=== PATIENT | female | born 1960 | race Caucasian/White ===

== ENCOUNTER 2018-04-11 15:19 | Outpatient (REF) | payer MEDICARE, SELFPAY ==
[2018-04-11 21:06] LABS: Hemoglobin A1C 5.7 % (4.5-6.2)
[2018-04-11 21:15] LABS: Cholesterol 162 mg/dL (50-200); HDL Cholesterol 67 mg/dL (40-60); LDL CHOLESTEROL 82 mg/dL (<100); TSH 2.93 uIU/mL (0.358-3.74); Triglyceride 74 mg/dL (30-150)
== END 2018-04-11 15:39 ==
LOC: NCHCN 15:19
PROVIDERS: PCP Physician Assistant; Visit Provider Nurse Practitioner Family
DX: R73.03 Prediabetes (principal); E78.89 Other lipoprotein metabolism disorders
CPT/HCPCS: 80061; 83721; 83036; 84443

== ENCOUNTER 2018-11-22 11:06 | Outpatient (REF) | payer MEDICARE, SELFPAY ==
[2018-11-22 19:07] LABS: Bilirubin Negative (Negative); Blood Negative (Negative); Clarity Clear; Glucose Negative (Negative); Ketones Negative (Negative); Leukocyte Esterase Negative (Negative); Nitrite Negative (Negative); Specific Gravity 1.025 (1.005-1.025); Urobilinogen 0.2 EU/dL (Up TO 0.2); pH 5.5 (5-8)
== END 2018-11-22 11:26 ==
LOC: LBN 11:06
PROVIDERS: Urology; PCP Physician Assistant; Visit Provider Nurse Practitioner Family
DX: R39.15 Urgency of urination (principal)
CPT/HCPCS: 81003

== ENCOUNTER 2019-02-14 14:26 | Outpatient (REF) | payer MEDICARE, SELFPAY ==
--- NOTE | 2019-02-14 13:30 | PAPFT_PTH ---
PATIENT: Iesha Jordan LOC: [facility] U#:[id number] AGE/SX: 58/F ROOM: RE02/14/[address]: Allyn Cabrera : 1960 BED: DIS: 02/14/2019 SPEC #: [id number] RECD: 02/15/19 12:49 STATUS: TROY REQ #: [id number] DUY: 02/14/19 13:[address]: Allyn Cabrera DEPT: [facility] Cytology RECD BY: Becca Gaitan ENTERED: 02/15/19 12:50 SP TYPE: PAPFT OTHR DR: Uriel Moctezuma Tissues: 1 - CX/ENDOCX FOR PAP SMEARS Procedures: PAP THIN PREP/[facility] Screening HPV DNA PROBE Comments: [id number]
== END 2019-02-14 14:46 ==
LOC: NCHCN 14:26
PROVIDERS: PCP Physician Assistant; Visit Provider Nurse Practitioner Family
DX: Z12.4 Encounter for screening for malignant neoplasm of cervix (principal); Z11.51 Encounter for screening for human papillomavirus (HPV); Z01.419 Encounter for gynecological examination (general) (routine) without abnormal findings
CPT/HCPCS: 88142; 87624

== ENCOUNTER 2020-12-16 20:13 | Outpatient (REF) | payer MEDICARE, SELFPAY ==
[2020-12-16 20:29] LABS: Anion Gap 7.7 mmol/L (3-11); BUN 20 mg/dL (7-18); CO2 29.3 mmol/L (21.0-32.0); CREATININE 1.1 mg/dL (0.55-1.02); Calcium 9.5 mg/dL (8.5-10.1); Chloride 107 mmol/L (98-107); Estimated GFR 51.02 (mL/min/1.73m2); Glucose 96 mg/dL (74-106); LDL CHOLESTEROL 72 mg/dL (<100); Sodium 144 mmol/L (136-145)
== END 2020-12-16 20:14 | disposition home or self-care (01) ==
LOC: NCHCN 20:13
PROVIDERS: PCP Physician Assistant; Visit Provider Physician Assistant
DX: R73.03 Prediabetes (principal); Z68.39 Body mass index [BMI] 39.0-39.9, adult; R79.89 Other specified abnormal findings of blood chemistry
CPT/HCPCS: 80048; 83721

== ENCOUNTER 2021-10-14 18:48 | Outpatient (REF) | payer MEDICARE, SELFPAY ==
--- OUTSIDE RECORDS SUMMARY | 2021-10-14 18:50 | XMS_ITS ---
:1960 Author Care Team Providers Name Role Phone SUPRIYA TRINIDAD Primary Care Provider [phone] Allergies Code Code System Name Reaction Severity Status Onset NKDA ? Medications None recorded. Problems None recorded. Procedures None recorded. Results Lab Results None recorded. Past Encounters None recorded. Social History None recorded. Vaccine List None recorded. Plan of Care Reminders Provider Appointments None ? ? recorded. Lab None ? ? recorded. Referral None ? ? recorded. Procedures None ? ? recorded. Surgeries None ? ? recorded. Imaging None ? ? recorded. Vitals None recorded.
[2021-10-14 19:47] LABS: Abs Immature Grans 0.02 10^3/uL (0.0-0.06); Absolute Basophil Count 0.04 10^3/uL (0.0-0.2); Absolute Lymphocyte Count 1.69 10^3/uL (1.2-3.4); Absolute Monocyte Count 0.35 10^3/uL (0.1-0.8); Absolute Neutrophil Count 3.12 10^3/uL (1.2-6.7); Basophils % 0.7; Eosinophils % 3.7; HCT 40.9 % (36.0-46.0); HGB 13.2 g/dL (11.2-15.7); Immature Grans % 0.4; Lymphocytes % 31.2; MCH 29.3 pg (27.0-33.0); MCHC 32.3 % (32.0-36.0); MCV 90.7 fL (80-95); MPV 9.7 fL (8.0-11.0); Monocytes % 6.5; Neutrophils % 57.5; Nucleated RBC 0 %; Platelet Count 281 10^3/uL (130-400); RBC 4.51 10^6/uL (3.93-5.22); RDW 13.6 % (11.7-14.6); RDW-SD 45.5 fL; WBC 5.42 10^3/uL (4.4-10.8)
== END 2021-10-14 18:49 | disposition home or self-care (01) ==
LOC: NCHCN 18:48
PROVIDERS: PCP Physician Assistant; Visit Provider Physician Assistant
DX: I26.99 Other pulmonary embolism without acute cor pulmonale (principal)
CPT/HCPCS: 85025

== ENCOUNTER 2022-09-22 15:03 | Outpatient (REF) | payer MEDICARE, SELFPAY ==
[2022-09-22 19:31] LABS: ALT 413 U/L (14-59); AST 186 U/L (15-37); Albumin 3.4 g/dL (3.4-5.0); Alkaline Phosphatase 132 U/L (46-116); Anion Gap 2.1 mmol/L (3-11); BUN 23 mg/dL (7-18); Bilirubin, Total 0.6 mg/dL (0.2-1.0); CO2 28.9 mmol/L (21.0-32.0); CREATININE 0.9 mg/dL (0.55-1.02); Calcium 8.9 mg/dL (8.5-10.1); Chloride 106 mmol/L (98-107); Estimated GFR 73.19 (mL/min/1.73m2); Glucose 109 mg/dL (74-106); Potassium 4.3 mmol/L (3.5-5.1); Sodium 137 mmol/L (136-145); Total Protein 7.4 g/dL (6.4-8.2)
[2022-09-22 19:32] LABS: Hemoglobin A1C 5.4 % (<5.7)
== END 2022-09-22 15:04 | disposition home or self-care (01) ==
LOC: NCHCN 15:03
PROVIDERS: PCP Physician Assistant; Visit Provider Physician Assistant
DX: R73.03 Prediabetes (principal); E66.01 Morbid (severe) obesity due to excess calories
CPT/HCPCS: 80053; 83036

== ENCOUNTER 2022-09-28 14:52 | Outpatient (REF) | payer MEDICARE, SELFPAY ==
[2022-09-29 03:17] LABS: Ferritin 1093 ng/mL (8-252)
[2022-09-29 03:23] LABS: GGT 172 U/L (5-55)
[2022-09-29 05:43] LABS: Iron 144 ug/dL (50-170); Total Iron Binding Capacity 316 ug/dL (250-450)
[2022-09-30 10:34] LABS: Hepatitis A Antibody IgM Negative (Negative); Hepatitis B Core Antibody Negative (Negative); Hepatitis B surface Ag Negative (Negative); Hepatitis C Ab w Rflx HCV PCR Negative (Negative)
[2022-10-03 16:56] LABS: Alpha-1-Antitrypsin 169 mg/dL (100 - 190)
== END 2022-09-28 14:53 | disposition home or self-care (01) ==
LOC: NCHCN 14:52
PROVIDERS: PCP Physician Assistant; Visit Provider Physician Assistant
DX: R74.8 Abnormal levels of other serum enzymes (principal)
CPT/HCPCS: 86704; 86709; 86803; 87340; 82103; 82104; 82728; 82977; 83540; 83550

== ENCOUNTER 2022-10-05 16:50 | Outpatient (REF) | payer MEDICARE, SELFPAY ==
[2022-10-05 19:44] LABS: Abs Immature Grans 0.01 10^3/uL (0.0-0.06); Absolute Basophil Count 0.06 10^3/uL (0.0-0.2); Absolute Eosinophil Count 0.13 10^3/uL (0.0-0.7); Absolute Lymphocyte Count 1.36 10^3/uL (1.2-3.4); Absolute Monocyte Count 0.34 10^3/uL (0.1-0.8); Absolute Neutrophil Count 2.14 10^3/uL (1.2-6.7); Basophils % 1.5; Eosinophils % 3.2; HCT 42.3 % (36.0-46.0); HGB 13.9 g/dL (11.2-15.7); Immature Grans % 0.2; Lymphocytes % 33.7; MCH 31.3 pg (27.0-33.0); MCHC 32.9 % (32.0-36.0); MCV 95 fL (80-95); MPV 9.5 fL (8.0-11.0); Monocytes % 8.4; Platelet Count 191 10^3/uL (130-400); RBC 4.44 10^6/uL (3.93-5.22); RDW 14.4 % (11.7-14.6); RDW-SD 50.1 fL; WBC 4.04 10^3/uL (4.4-10.8)
[2022-10-05 19:48] LABS: INR 1.8 (0.9-1.1); PTT Activated 47.7 sec (21.5-31.9); Prothrombin Time 17.8 sec (9.3-11.0)
[2022-10-11 19:01] LABS: Result Summary NEGATIVE; Specimen WB Whole Blood
== END 2022-10-05 16:51 | disposition home or self-care (01) ==
LOC: NCHCN 16:50
PROVIDERS: PCP Physician Assistant; Visit Provider Physician Assistant
DX: R79.89 Other specified abnormal findings of blood chemistry (principal); R74.8 Abnormal levels of other serum enzymes; R79.1 Abnormal coagulation profile; E83.110 Hereditary hemochromatosis
CPT/HCPCS: 81256; 85025; 85610; 85730

== ENCOUNTER 2023-01-05 16:05 | Outpatient (REF) | payer MEDICARE, SELFPAY ==
[2023-01-05 18:46] LABS: HCT 42.5 % (36.0-46.0); HGB 14.1 g/dL (11.2-15.7); MCH 31.8 pg (27.0-33.0); MCHC 33.2 % (32.0-36.0); MCV 96 fL (80-95); MPV 9.8 fL (8.0-11.0); Platelet Count 215 10^3/uL (130-400); RBC 4.44 10^6/uL (3.93-5.22); RDW 12.5 % (11.7-14.6); RDW-SD 44.1 fL
[2023-01-05 18:54] LABS: ALT 74 U/L (14-59); AST 56 U/L (15-37); Albumin 3.5 g/dL (3.4-5.0); Alkaline Phosphatase 112 U/L (46-116); Anion Gap 5.2 mmol/L (3-11); BUN 19 mg/dL (7-18); Bilirubin, Total 0.7 mg/dL (0.2-1.0); CO2 29.8 mmol/L (21.0-32.0); CREATININE 0.9 mg/dL (0.55-1.02); Calcium 9.1 mg/dL (8.5-10.1); Chloride 105 mmol/L (98-107); Estimated GFR 73.19 (mL/min/1.73m2); Glucose 90 mg/dL (74-106); INR 1.4 (0.9-1.1); Prothrombin Time 14.1 sec (9.3-11.0); Sodium 140 mmol/L (136-145); Total Protein 7.6 g/dL (6.4-8.2)
== END 2023-01-05 16:06 | disposition home or self-care (01) ==
LOC: NCHCN 16:05
PROVIDERS: PCP Physician Assistant; Visit Provider Physician Assistant
DX: R74.8 Abnormal levels of other serum enzymes (principal); R78.89 Finding of other specified substances, not normally found in blood
CPT/HCPCS: 80053; 85027; 85610

== ENCOUNTER 2024-11-26 14:34 | Outpatient (REF) | payer MEDICARE, SELFPAY ==
[2024-11-26 19:23] LABS: HCT 44.7 % (36.0-46.0); HGB 14.6 g/dL (11.2-15.7); MCH 29.9 pg (27.0-33.0); MCHC 32.7 % (32.0-36.0); MCV 91 fL (80-95); Platelet Count 253 10^3/uL (130-400); RBC 4.89 10^6/uL (3.93-5.22); RDW-SD 43.6 fL; WBC 4.94 10^3/uL (4.4-10.8)
[2024-11-26 19:47] LABS: ALT 20 U/L (14-59); AST 24 U/L (15-37); Albumin 3.8 g/dL (3.4-5.0); Alkaline Phosphatase 120 U/L (46-116); BUN 20 mg/dL (7-18); Bilirubin, Total 0.5 mg/dL (0.2-1.0); Calcium 9.6 mg/dL (8.5-10.1); Chloride 105 mmol/L (98-107); Glucose 102 mg/dL (74-106); Potassium 4.2 mmol/L (3.5-5.1); Sodium 142 mmol/L (136-145); Total Protein 7.9 g/dL (6.4-8.2)
[2024-11-26 19:52] LABS: Hemoglobin A1C 5.6 % (<5.7)
== END 2024-11-26 14:35 | disposition home or self-care (01) ==
LOC: NCHCN 14:34
PROVIDERS: PCP Physician Assistant; Visit Provider Nurse Practitioner Family
DX: R73.03 Prediabetes (principal); I26.99 Other pulmonary embolism without acute cor pulmonale
CPT/HCPCS: 80053; 85027; 83036

== ENCOUNTER → 2025-03-12 14:48 | Outpatient (BNVA) | payer MEDICARE, SELFPAY | PROVIDERS: PCP Physician Assistant; Referring Provider Physician Assistant; Visit Provider Podiatrist | DX: L60.3 Nail dystrophy (principal); B35.1 Tinea unguium; M79.674 Pain in right toe(s); M79.675 Pain in left toe(s); I73.89 Other specified peripheral vascular diseases; R60.0 Localized edema; G35 Multiple sclerosis; R26.9 Unspecified abnormalities of gait and mobility; R09.89 Other specified symptoms and signs involving the circulatory and respiratory systems; R20.8 Other disturbances of skin sensation; L65.9 Nonscarring hair loss, unspecified; R23.8 Other skin changes; L60.2 Onychogryphosis; L60.8 Other nail disorders | CPT/HCPCS: 11719; 11720 ==